=== PATIENT | male | born 1980 | race American Indian/Alaskan Native ===

== ENCOUNTER 2021-07-30 21:20 | Emergency (ER) | payer SELFPAY ==
[2021-07-30 21:40] VITALS: BP 134/65
[2021-07-30] MEDS ORDERED: traMADol 50 MG TAB PO ONE (22:03)
[2021-07-30] MEDS ORDERED: TETANUS,DIPH,PERTUSS(ACELL) VACCINE 0.5 ML SYRINGE IM ONE (22:03)
--- NOTE | 2021-07-30 22:26 | Emergency Department Report ---
ED General Adult HPI - General Chief complaint: Wound/Laceration Stated complaint: LACERATION ABOVE RIGHT EYE Time Seen by Provider: 07/30/21 22:02 Source: patient Mode of arrival: Ambulatory Limitations: No Limitations - History of Present Illness Initial comments: Patient 40-year-old male who presents for right eyebrow laceration. Patient states he was taken out the garbage and a bottle flew back striking him in his right eyebrow causing laceration. Was no LOC pain was controlled by direct pressure self applied. Last tetanus unknown, patient alert oriented x3 patient drove self to ED's is amatory with steady gait there is no dizziness lightheadedness no nausea no vomiting. He denies other injury. - Related Data Allergies Allergy/AdvReac Type Severity Reaction Status Date / Time No Known Allergies Allergy Unverified 07/30/21 21:38 ED Review of Systems ROS: Stated complaint: LACERATION ABOVE RIGHT EYE Other details as noted in HPI Constitutional: denies: chills, fever Eyes: denies: eye pain, eye discharge, vision change ENT: denies: ear pain, throat pain Respiratory: denies: cough, shortness of breath, wheezing Cardiovascular: denies: chest pain, palpitations Endocrine: no symptoms reported Gastrointestinal: denies: abdominal pain, nausea, diarrhea Genitourinary: denies: urgency, dysuria Musculoskeletal: denies: back pain, joint swelling, arthralgia Skin: other (Laceration right eyebrow 1 inch). denies: rash, lesions Neurological: headache. denies: numbness, paresthesias, confusion, vertigo Psychiatric: denies: anxiety, depression Hematological/Lymphatic: as per HPI ED Past Medical Hx - Past Medical History Previous Medical History?: No - Surgical History Past Surgical History?: No ED Physical Exam - General Limitations: No Limitations General appearance: alert, in no apparent distress - Head Head exam: Present: normocephalic, normal inspection - Expanded Head Exam Expanded Head exam: Present: laceration (Laceration right lateral eyebrow, superficial, eyes are PERRLA EOMI adjunctive are clear no decreased vision.). Absent: abrasion, contusion, hematoma, racoon eyes, tenderness of temporal artery - Eye Eye exam: Present: normal appearance, PERRL, EOMI. Absent: conjunctival injection, nystagmus Pupils: Present: normal accommodation - ENT ENT exam: Present: normal orophraynx, mucous membranes moist, TM's normal bilaterally, normal external ear exam - Neck Neck exam: Present: normal inspection, full ROM. Absent: tenderness, lymphadenopathy, thyromegaly - Expanded Neck Exam Expanded Neck exam: Absent: tenderness, midline deformity, anterior neck swelling - Respiratory Respiratory exam: Present: normal lung sounds bilaterally. Absent: respiratory distress, wheezes - Cardiovascular Cardiovascular Exam: Present: regular rate, normal rhythm, normal heart sounds. Absent: systolic murmur, diastolic murmur, rubs, gallop - GI/Abdominal GI/Abdominal exam: Present: soft, normal bowel sounds. Absent: distended, tenderness - Rectal Rectal exam: Present: deferred - Extremities Exam Extremities exam: Present: normal inspection, full ROM - Back Exam Back exam: Present: normal inspection, full ROM. Absent: tenderness - Neurological Exam Neurological exam: Present: alert, oriented X3, CN II-XII intact, normal gait, reflexes normal. Absent: motor sensory deficit - Expanded Neurological Exam Expanded Patient oriented to: Present: person, place, time Speech: Present: fluid speech Cranial nerves: EOM's Intact: Normal Best Eye Response ([place]): (4) open spontaneously Best Motor Response ([place]): (6) obeys commands Best Verbal Response ([place]): (5) oriented [place] Total: 15 - Psychiatric Psychiatric exam: Present: normal affect, normal mood - Skin Skin exam: Present: warm, dry, normal color, other (Laceration as above no nerve muscle or tendon damage.). Absent: rash ED Course Vital Signs 07/30/21 21:38 Temperature 98.2 F Pulse Rate 66 Respiratory 16 Rate Blood Pressure 134/65 O2 Sat by Pulse 97 Oximetry - Laceration /Wound Repair Right Lateral Face Wound Location: face (Right eyebrow lateral laceration component superficial) Wound Length (cm): 2 Wound's Depth, Shape: superficial Wound Explored: clean Irrigated w/ Saline (ccs): 10 Betadine Prep?: Yes Wound Debrided: None required Wound Repaired With: Steri-strips (2), Dermabond Layer Closure?: No Sterile Dressing Applied?: No (dermabond and steristrip ) Progress: right eyebrow laceration 0.8 superficial, site cleaned with Betadine solution irrigated with 10 cc sterile saline, closed with Dermabond and Steri-Strips x2, edges well approximated all bleeding is controlled patient tolerated procedure with minimal distress. Patient given aftercare instructions verbalized understanding of same. ED Medical Decision Making - Medical Decision Making Right eyebrow laceration. See procedure note. All bleeding controlled. Patient tolerated procedure with minimal distress. Patient DC'd home in stable condition at this time. We will follow-up with primary care doctor in 2 days for his wound check, Critical care attestation.: If time is entered above; I have spent that time in minutes in the direct care of this critically ill patient, excluding procedure time. ED Disposition Clinical Impression: Laceration of eyebrow, right Qualifiers: Encounter type: initial encounter Qualified Code(s): S01.111A - Laceration without foreign body of right eyelid and periocular area, initial encounter Disposition: HOME / SELF CARE / HOMELESS Is pt being admited?: No Does the pt Need Aspirin: No Condition: Stable Instructions: Laceration Care, Adult Additional Instructions: Take [id number] ibuprofen or Tylenol as needed for pain. Referrals: SHANEL BAKER MD [Staff Physician] - 3-5 Days Forms: Work/School Release Form(ED) Time of Disposition: 22:28
== END 2021-07-30 22:50 | disposition home or self-care (01) ==
LOC: ED 21:20
DX: S01.111A Laceration without foreign body of right eyelid and periocular area, initial encounter (principal); W22.8XXA Striking against or struck by other objects, initial encounter; Y93.89 Activity, other specified; Y92.89 Other specified places as the place of occurrence of the external cause; Y99.8 Other external cause status
CPT/HCPCS: 90471; 90715; 99282